=== PATIENT | male | born 1945 | race Hispanic/Latino ===

== ENCOUNTER 2019-02-13 12:14 | Emergency (ER) | payer OTHER ==
--- OUTSIDE RECORDS SUMMARY | 2019-02-13 12:17 | XMS REPORT ---
:1945 Author Organization eClinicalWorks Care Team Providers Name Role Phone Mace, Na Provider Role Unavailable Allergies, Adverse Reactions, Alerts Substance Reaction Event Type N.K.D.A. Info Not Available Non Drug Allergy Problems Problem Type Condition Code Onset Dates Condition Status Problem Hyperlipidemia E78.5 Active Problem Obesity, Class II, BMI 35.0-39.9, E66.9 Active with comorbidity (see actual BMI) Problem Controlled type 2 diabetes mellitus E11.9 Active without complication, without long-term current use of insulin Problem Personal history of nicotine Z87.891 Active dependence Assessment Personal history of nicotine Z87.891 Active dependence Problem Gastroesophageal reflux disease, K21.9 Active esophagitis presence not specified Problem Cough R05 Active Problem BMI 38.0-38.9,adult Z68.38 Active Problem Hearing loss, unspecified hearing H91.90 Active loss type, unspecified laterality Problem Stress at home F43.9 Active Problem Seasonal allergies J30.2 Active Assessment Benign paroxysmal positional H81.10 Active vertigo, unspecified laterality Assessment Gastroesophageal reflux disease, K21.9 Active esophagitis presence not specified Assessment Stress at home F43.9 Active Assessment Seasonal allergies J30.2 Active Problem HTN (hypertension) I10 Active Problem Hyperglycemia R73.9 Active Assessment Cough R05 Active Problem Obesity E66.9 Active Problem Tinea unguium B35.1 Active Medications Medication Code Code Instructions Start End Status Dosage System Date Date Omeprazole ND 51531569006 40 MG Orally Inactive 1 capsule Once a day Pantoprazole ND 47121643889 40 MG Orally Nov 25, Active 1 tablet Sodium Once a day 2018 Cetirizine HCl ND 53731439353 10 MG Orally Active 1 tablet Once a day Metoprolol ND 64488499742 50 MG Orally Active 1 tablet Tartrate Twice a day with food Flonase ND 41301149758 50 MCG/ACT Nov 25, Active 2 spray in Nasally Once a 2019 each day nostril Ibuprofen ND 45488217577 800 MG Orally Active 1 tablet Three times a with food day or milk as needed MetFORMIN HCl [facility] 52741372439 500 MG Orally Active 1 tablet ER twice a day Pravastatin [facility] 98239210668 40 MG Orally Active 1 tablet Sodium Once a day at bedtime Amlodipine [facility] 77914218364 5-10 MG Orally Active as Besy-Benazepril once a day at directed HCl bedtime for hypertension Terbinafine HCl [facility] 87457263728 250 MG Orally Active 1 tablet Once a day Results No Known Results Summary Purpose eClinicalWorks Submission
--- OUTSIDE RECORDS SUMMARY | 2019-02-13 12:17 | XMS REPORT ---
:1945 Author Organization eClinicalWorks Care Team Providers Name Role Phone Mace, Na Provider Role Unavailable Allergies No Known Allergies Problems Problem Type Condition Code Onset Dates Condition Status Problem Hyperlipidemia E78.5 Active Problem Obesity, Class II, BMI 35.0-39.9, E66.9 Active with comorbidity (see actual BMI) Problem Controlled type 2 diabetes mellitus E11.9 Active without complication, without long-term current use of insulin Problem Personal history of nicotine Z87.891 Active dependence Assessment Obesity, Class II, BMI 35.0-39.9, E66.9 Active with comorbidity (see actual BMI) Problem Gastroesophageal reflux disease, K21.9 Active esophagitis presence not specified Assessment Hearing loss, unspecified hearing H91.90 Active loss type, unspecified laterality Assessment Needs flu shot Z23 Active Problem Cough R05 Active Problem BMI 38.0-38.9,adult Z68.38 Active Problem Hearing loss, unspecified hearing H91.90 Active loss type, unspecified laterality Problem Stress at home F43.9 Active Problem Seasonal allergies J30.2 Active Assessment Hyperlipidemia E78.5 Active Assessment HTN (hypertension) I10 Active Assessment Seasonal allergies J30.2 Active Assessment Microalbuminuria R80.9 Active Problem HTN (hypertension) I10 Active Problem Hyperglycemia R73.9 Active Assessment Type 2 diabetes mellitus with E11.65 Active hyperglycemia, without long-term current use of insulin Problem Obesity E66.9 Active Problem Tinea unguium B35.1 Active Medications Medication Code Code Instructions Start End Status Dosage System Date Date Metoprolol ND 89063424643 50 MG Orally Active 1 tablet Tartrate Twice a day with food Flonase NDC 12956606856 50 MCG/ACT Jan 26, Active 2 spray in Nasally Once a 2018 each day nostril Flonase NDC 35701746073 50 MCG/ACT Nov 25, Active 2 spray in Nasally Once a 2018 each day nostril Montelukast NDC 94315015066 10 MG Orally Jan 26, Active 1 tablet Sodium Once a day 2018 Ibuprofen [facility] 12298079024 800 MG Orally Active 1 tablet Three times a with food day or milk as needed Amlodipine [facility] 17025399067 5-10 MG Orally Active as Besy-Benazepril once a day at directed HCl bedtime for hypertension Cetirizine HCl [facility] 99487342246 10 MG Orally Jan 26, Inactive 1 tablet Once a day 2018 Pantoprazole [facility] 92788160969 40 MG Orally Nov 25, Active 1 tablet Sodium Once a day 2018 Pravastatin [facility] 63495968031 40 MG Orally Active 1 tablet Sodium Once a day at bedtime MetFORMIN HCl [facility] 81413360465 500 MG Orally Active 1 tablet ER twice a day Terbinafine HCl [facility] 03857546658 250 MG Orally Active 1 tablet Once a day Results No Known Results Immunizations Vaccine Administration Date FluAD Jan 26, 2019 Summary Purpose eClinicalWorks Submission
--- NOTE | 2019-02-13 14:50 | ER ---
Nurse's Notes [facility] Name: Nikita Staton Age: 73 yrs Sex: Male : 1945 Arrival Date: 02/13/2019 Time: 12:17 Bed 11 Private MD: Lucille Mace Diagnosis: Strain of muscle, fascia and tendon at neck level;Strain of muscle(s) and tendon(s) of the rotator cuff of left shoulder;Bradycardia, unspecified Presentation: 02/13 12:22 Presenting complaint: Patient states: left ear pain for the last few days. Transition la1 of care: patient was not received from another setting of care. Onset of symptoms was February 13, 2019. Risk Assessment: Do you want to hurt yourself or someone else? Patient reports no desire to harm self or others. Initial Sepsis Screen: Does the patient meet any 2 criteria? No. Patient's initial sepsis screen is negative. Does the patient have a suspected source of infection? No. Patient's initial sepsis screen is negative. Care prior to arrival: None. 12:22 Method Of Arrival: Ambulatory la1 12:22 Acuity: AILIN 5 la1 Historical: - Allergies: 12:21 No Known Allergies; la1 - PMHx: 12:21 Hypertension; la1 - Immunization history:: Adult Immunizations up to date. - Social history:: Smoking status: Patient/guardian denies using tobacco. - Ebola Screening: : No symptoms or risks identified at this time. - Family history:: not pertinent. Screenin:45 Abuse screen: Denies threats or abuse. Denies injuries from another. Nutritional rv screening: No deficits noted. Tuberculosis screening: No symptoms or risk factors identified. Fall Risk None identified. Assessment: 13:44 General: Appears in no apparent distress. comfortable, Behavior is calm, cooperative. rv Pain: Complains of pain in left ear. Neuro: Level of Consciousness is awake, alert, obeys commands, Oriented to person, place, time, situation. Cardiovascular: Patient's skin is warm and dry. Respiratory: Airway is patent. GI: No signs and/or symptoms were reported involving the gastrointestinal system. : No signs and/or symptoms were reported regarding the genitourinary system. EENT: noticed good amount of earwax in the left ear.. Derm: Skin is intact. Musculoskeletal: No signs and/or symptoms reported regarding the musculoskeletal system. Vital Signs: 12:22 Pulse 50; Resp 16; Temp 98.1; Pulse Ox 100% on R/A; Weight 90.72 kg; la1 12:23 BP 125 / 54; la1 ED Course: 12:17 Patient arrived in ED. ag5 12:17 Lucille Mace MD is Private Physician. ag5 12:22 Triage completed. la1 12:22 Arm band placed on right wrist. la1 13:40 Cullen Sharp, RN is Primary Nurse. rv 13:46 Patient has correct armband on for positive identification. Bed in low position. Call rv light in reach. Side rails up X 1. Pulse ox on. NIBP on. 13:51 Kris Henao MD is Attending Physician. quynh 14:48 Lucille Mace MD is Referral Physician. quynh 15:00 David El MD is Referral Physician. [facility] 15:06 EKG done, by light technician. reviewed by Kris Henao MD. [facility] 15:06 No provider procedures requiring assistance completed. Patient did not have IV access rv during this emergency room visit. Administered Medications: 15:05 Drug: [place] (7.5 mg-325 mg) 1 tabs Route: PO; rv 15:06 Follow up: Response: Medication administered at discharge. rv 15:05 Drug: Valium 5 mg Route: PO; rv 15:06 Follow up: Response: Medication administered at discharge. rv 15:06 Drug: Motrin 600 mg Route: PO; rv 15:06 Follow up: Response: Medication administered at discharge. rv Outcome: 14:49 Discharge ordered by . quynh 15:06 Discharged to home ambulatory, with family. rv 15:06 Condition: good 15:06 Discharge instructions given to patient, Instructed on discharge instructions, follow up and referral plans. medication usage, Demonstrated understanding of instructions, follow-up care, medications, Prescriptions given X 4. 15:07 Patient left the ED. rv Signatures: Kris Henao MD MD cha Attema, Lee, RN RN ks1 Kylee Denney 3 Cullen Sharp RN RN Marilu Piper 5
--- NOTE | 2019-02-13 14:50 | EDPHYS ---
Physician Documentation [facility] Name: Nikita Staton Age: 73 yrs Sex: Male : 1945 Arrival Date: 02/13/2019 Time: 12:17 Bed 11 Private MD: Lucille Mace ED Physician Kris Henao HPI: 02/13 14:43 This 73 yrs old Male presents to ER via Ambulatory with complaints of Ear Pain.quynh 14:43 The patient presents with pain. quynh 14:44 The complaints affect the left ear and left jaw. Onset: The symptoms/episode quynh began/occurred 2 day(s) ago. Modifying factors: The symptoms are alleviated by nothing, the symptoms are aggravated by nothing. The patient presents with pain that is acute, and decreased range of motion. The symptoms are located in the posterior cervical area, left trapezius, left scapular area and left subscapular area. Modifying factors: The patient symptoms are alleviated by remaining still, specific position, the patient symptoms are aggravated by any movement, lifting, movement. Historical: - Allergies: 12:21 No Known Allergies; la1 - PMHx: 12:21 Hypertension; la1 - Immunization history:: Adult Immunizations up to date. - Social history:: Smoking status: Patient/guardian denies using tobacco. - Ebola Screening: : No symptoms or risks identified at this time. - Family history:: not pertinent. ROS: 14:44 Constitutional: Negative for fever, chills, and weight loss, Eyes: Negative for injury, quynh pain, redness, and discharge, ENT: Negative for injury, pain, and discharge, Neck: Negative for injury, pain, and swelling, Cardiovascular: Negative for chest pain, palpitations, and edema, Respiratory: Negative for shortness of breath, cough, wheezing, and pleuritic chest pain, Abdomen/GI: Negative for abdominal pain, nausea, vomiting, diarrhea, and constipation, : Negative for injury, bleeding, discharge, and swelling, Skin: Negative for injury, rash, and discoloration, Neuro: Negative for headache, weakness, numbness, tingling, and seizure, Psych: Negative for depression, anxiety, suicide ideation, homicidal ideation, and hallucinations, Allergy/Immunology: Negative for hives, rash, and allergies, Endocrine: Negative for neck swelling, polydipsia, polyuria, polyphagia, and marked weight changes, Hematologic/Lymphatic: Negative for swollen nodes, abnormal bleeding, and unusual bruising. 14:44 Back: Positive for decreased range of motion, pain at rest, pain with movement. 14:44 MS/extremity: Positive for decreased range of motion, pain, tenderness, of the posterior cervical area, left trapezius, left scapular area and left subscapular area. Exam: 14:44 Constitutional: This is a well developed, well nourished patient who is awake, alert, quynh and in no acute distress. Head/Face: Normocephalic, atraumatic. Eyes: Pupils equal round and reactive to light, extra-ocular motions intact. Lids and lashes normal. Conjunctiva and sclera are non-icteric and not injected. Cornea within normal limits. Periorbital areas with no swelling, redness, or edema. ENT: Nares patent. No nasal discharge, no septal abnormalities noted. Tympanic membranes are normal and external auditory canals are clear. Oropharynx with no redness, swelling, or masses, exudates, or evidence of obstruction, uvula midline. Mucous membranes moist. Neck: Trachea midline, no thyromegaly or masses palpated, and no cervical lymphadenopathy. Supple, full range of motion without nuchal rigidity, or vertebral point tenderness. No Meningismus. Chest/axilla: Normal chest wall appearance and motion. Nontender with no deformity. No lesions are appreciated. Cardiovascular: Regular rate and rhythm with a normal S1 and S2. No gallops, murmurs, or rubs. Normal PMI, no JVD. No pulse deficits. Respiratory: Lungs have equal breath sounds bilaterally, clear to auscultation and percussion. No rales, rhonchi or wheezes noted. No increased work of breathing, no retractions or nasal flaring. Abdomen/GI: Soft, non-tender, with normal bowel sounds. No distension or tympany. No guarding or rebound. No evidence of tenderness throughout. Back: No spinal tenderness. No costovertebral tenderness. Full range of motion. Skin: Warm, dry with normal turgor. Normal color with no rashes, no lesions, and no evidence of cellulitis. Neuro: Awake and alert, GCS 15, oriented to person, place, time, and situation. Cranial nerves II-XII grossly intact. Motor strength 5/5 in all extremities. Sensory grossly intact. Cerebellar exam normal. Normal gait. Psych: Awake, alert, with orientation to person, place and time. Behavior, mood, and affect are within normal limits. 14:44 Musculoskeletal/extremity: Extremities: grossly normal except: decreased ROM, pain, tenderness. Vital Signs: 12:22 Pulse 50; Resp 16; Temp 98.1; Pulse Ox 100% on R/A; Weight 90.72 kg; la1 12:23 BP 125 / 54; la1 MDM: 13:51 Patient medically screened. [facility] 02/13 14:43 Order name: EKG; Complete Time: 14:44 [facility] 02/13 14:43 Order name: EKG - Nurse/Tech; Complete Time: 14:55 [facility] Administered Medications: 15:05 Drug: [place] (7.5 mg-325 mg) 1 tabs Route: PO; rv 15:06 Follow up: Response: Medication administered at discharge. rv 15:05 Drug: Valium 5 mg Route: PO; rv 15:06 Follow up: Response: Medication administered at discharge. rv 15:06 Drug: Motrin 600 mg Route: PO; rv 15:06 Follow up: Response: Medication administered at discharge. rv Disposition: 02/13/19 14:49 Discharged to Home. Impression: Strain of muscle, fascia and tendon at neck level, Strain of muscle(s) and tendon(s) of the rotator cuff of left shoulder, Bradycardia, unspecified. - Condition is Stable. - Discharge Instructions: Bradycardia, Adult, Muscle Strain, Cervical Sprain, [id number]. - Prescriptions for Ibuprofen 600 mg Oral Tablet - take 1 tablet by ORAL route every 8 hours As needed take with food; 21 tablet. Tylenol- Codeine #3 300-30 mg Oral Tablet - take 2 tablet by ORAL route every 6 hours As needed; 30 tablet. Valium 5 mg Oral Tablet - take 1 tablet by ORAL route every 8 hours As needed; 15 tablet. Medrol (Phil) 4 mg Oral Tablets, Dose Pack - take 1 tablet by ORAL route as directed - follow package instructions; 1 packet. - Medication Reconciliation Form, Thank You Letter, Antibiotic Education, Prescription Opioid Use form. - Follow up: Lucille Mace MD; When: 2 - 3 days; Reason: Recheck today's complaints, Continuance of care, Re-evaluation by your physician. Follow up: David El MD; When: 2 - 3 days; Reason: Recheck today's complaints, Re-evaluation by your physician. - Problem is new. - Symptoms have improved. Signatures: Kris Henao MD MD cha Attema, Lee, RN RN la1 Cullen Sharp RN RN rv Corrections: (The following items were deleted from the chart) 15:00 14:49 02/13/2019 14:49 Discharged to Home. Impression: Strain of muscle, fascia and quynh tendon at neck level; Strain of muscle(s) and tendon(s) of the rotator cuff of left shoulder. Condition is Stable. Forms are Medication Reconciliation Form, Thank You Letter, Antibiotic Education, Prescription Opioid Use. Follow up: Lucille Mace; When: 2 - 3 days; Reason: Recheck today's complaints, Continuance of care, Re-evaluation by your physician. Problem is new. Symptoms have improved. [facility] 15:07 15:00 02/13/2019 14:49 Discharged to Home. Impression: Strain of muscle, fascia and rv tendon at neck level; Strain of muscle(s) and tendon(s) of the rotator cuff of left shoulder; Bradycardia, unspecified. Condition is Stable. Discharge Instructions: Muscle Strain, Cervical Sprain, [id number]. Prescriptions for Ibuprofen 600 mg Oral Tablet - take 1 tablet by ORAL route every 8 hours As needed take with food; 21 tablet, Tylenol-Codeine #3 300-30 mg Oral Tablet - take 2 tablet by ORAL route every 6 hours As needed; 30 tablet, Valium 5 mg Oral Tablet - take 1 tablet by ORAL route every 8 hours As needed; 15 tablet, Medrol (Phil) 4 mg Oral Tablets, Dose Pack - take 1 tablet by ORAL route as directed - follow package instructions; 1 packet. and Forms are Medication Reconciliation Form, Thank You Letter, Antibiotic Education, Prescription Opioid Use. Follow up: Lucille Mace; When: 2 - 3 days; Reason: Recheck today's complaints, Continuance of care, Re-evaluation by your physician. Follow up: David El; When: 2 - 3 days; Reason: Recheck today's complaints, Re-evaluation by your physician. Problem is new. Symptoms have improved. quynh
[2019-02-13] MEDS ORDERED: DIAZEPAM 5 MG TABLET ONE (14:53)
[2019-02-13] MEDS ORDERED: IBUPROFEN 200 MG TAB PO ONE (14:54)
[2019-02-13] MEDS ORDERED: IBUPROFEN 400 MG TAB ONE (14:54)
[2019-02-13] MEDS ORDERED: HYDROCODONE/APAP 7.5/325 MG TAB ONE (14:54)
--- NOTE | 2019-02-13 16:29 | EKG ---
Test Date: 2019-02-13 Test Time: 14:55:31 Medical Detailist: GLEN MEASUREMENT RESULTS: Intervals: Rate: 37 OR: 178 QRSD: 92 QT: 490 QTc: 384 [place]: P: 15 OR: 178 QRS: 54 T: 48 INTERPRETIVE STATEMENTS: Sinus rhythm with Mobitz II AV block Abnormal ECG Compared to ECG 05/15/2014 01:16:39 Sinus rhythm is now with second degree AV block Electronically Signed On 02-13-19 16:29:17 [employer]PER[employer]ENDENT [employer]EV[employer] by Jimbo Garcia
[2019-02-13 17:48] VITALS: TEMP 98.1; O2SAT 100
[2019-02-13 17:49] VITALS: BP 125/54
== END 2019-02-13 15:07 | disposition home or self-care (01) ==
LOC: ER 12:14
DX: S16.1XXA Strain of muscle, fascia and tendon at neck level, initial encounter (principal); S46.012A Strain of muscle(s) and tendon(s) of the rotator cuff of left shoulder, initial encounter; R00.1 Bradycardia, unspecified; I10 Essential (primary) hypertension
CPT/HCPCS: 93005; 99284

== ENCOUNTER 2021-10-06 11:14 | Inpatient (IN) | payer OTHER ==
--- NOTE | 2021-10-06 11:25 | ER ---
Nurse's Notes [facility] Name: Nikita Staton Age: 76 yrs Sex: Male : 1945 Arrival Date: 10/06/2021 Time: 11:16 Bed 26 Private MD: Alfred Leung Diagnosis: Bradycardia, unspecified;Chest pain, unspecified Presentation: 10/06 11:22 Chief complaint: Patient states: Direct admit from Dr Leung due to Bradycardia. Pt vg1 reports "chest tightness and SOB". Coronavirus screen: Vaccine status: Patient reports receiving the 2nd dose of the covid vaccine. Client denies travel out of the [place] in the last 14 days. Ebola Screen: Patient denies exposure to infectious person. Patient denies travel to an Ebola-affected area in the 21 days before illness onset. Initial Sepsis Screen: Does the patient meet any 2 criteria? No. Patient's initial sepsis screen is negative. Does the patient have a suspected source of infection? No. Patient's initial sepsis screen is negative. Risk Assessment: Do you want to hurt yourself or someone else? Patient reports no desire to harm self or others. Onset of symptoms was October 06, 2021. 11:22 Method Of Arrival: Ambulatory vg1 11:22 Acuity: AILIN 3 vg1 Triage Assessment: 11:25 General: Appears uncomfortable, Behavior is calm, cooperative. Pain: Complains of pain vg1 in chest Pain currently is 2 out of 10 on a pain scale. Quality of pain is described as pressure, Pain began 2-3 days ago. Neuro: Level of Consciousness is awake, alert, obeys commands, Oriented to person, place, time, situation. Cardiovascular: Patient's skin is warm and dry. Respiratory: Airway is patent Respiratory effort is even, unlabored. Historical: - Allergies: 11:25 No Known Allergies; vg1 - Home Meds: 11:25 Metoprolol Tartrate Oral [Active]; metformin Oral [Active]; vg1 - PMHx: 11:25 Hypertension; Diabetes mellitus; vg1 - Immunization history:: Client reports receiving the 2nd dose of the Covid vaccine. - Social history:: Smoking status: Patient denies any tobacco usage or history of. Vital Signs: 11: BP 163 / 72; Pulse 38; Resp 18; Temp 98.6; Pulse Ox 98% on R/A; Weight 90.72 kg; Height vg1 5 ft. 5 in. (165.10 cm); Pain 2/10; 11:22 Body Mass Index 33.28 (90.72 kg, 165.10 cm) vg1 ED Course: 11:16 Patient arrived in ED. mr 11:17 Alfred Leung MD is Private Physician. mr 11:18 Tyrel Borrego DO is Attending Physician. ms3 11:24 Alfred Leung MD is Hospitalizing Provider. ms3 11:25 Triage completed. vg1 11:25 Arm band placed on. vg1 11:35 XRAY Chest (1 view) In Process Unspecified. EDMS 12:26 Kne Morin, RN is Primary Nurse. bp 12:47 COVID-19 SARS RT PCR (Document "Date of Onset" if Symptomatic) Sent. kc6 13:20 Inserted saline lock: 20 gauge in right forearm, using aseptic technique. Blood bp collected. Administered Medications: No medications were administered Outcome: 11:25 Decision to Hospitalize by Provider. ms3 16:49 Patient left the ED. Signatures: Dispatcher [employer] EDND Marcia Polo mr Keara Rogers, RN RN Ken Morin, RN RN Jeannette Bro, RAJ RN vg1 Tyrel Borrego DO DO ms3 Rossy Mazariegos kc6
--- NOTE | 2021-10-06 11:26 | EDPHYS ---
Physician Documentation [facility] Name: Nikita Staton Age: 76 yrs Sex: Male : 1945 Arrival Date: 10/06/2021 Time: 11:16 Bed 26 Private MD: Alfred Leung ED Physician Tyrel Borrego HPI: 10/06 17:17 This 76 yrs old Male presents to ER via Ambulatory with complaints of ms3 Bradycardia per Dr Leung/Direct Admit. 17:17 76-year-old male presents from Dr. Leung's office for admission due to low heart rate. ms3 Dr. Leung states patient is on metoprolol. Patient denies pain. Patient Dors is shortness of breath that began 5 days ago associated with mild chest pressure. Patient denies alleviating or inciting factors.. Onset: The symptoms/episode began/occurred 5 day(s) ago. Severity of symptoms: At their worst the symptoms were mild in the emergency department the symptoms are unchanged. Historical: - Allergies: 11:25 No Known Allergies; vg1 - Home Meds: 11:25 Metoprolol Tartrate Oral [Active]; metformin Oral [Active]; vg1 - PMHx: 11:25 Hypertension; Diabetes mellitus; vg1 - Immunization history:: Client reports receiving the 2nd dose of the Covid vaccine. - Social history:: Smoking status: Patient denies any tobacco usage or history of. ROS: 17:17 Constitutional: Negative for fever, and chills. Neck: Negative for injury, pain, and ms3 swelling. 17:17 Skin: Negative for injury, rash, and discoloration, Neuro: Negative for headache, weakness, numbness, tingling. Psych: Negative for depression, anxiety, suicide ideation, homicidal ideation, and hallucinations. 17:17 Cardiovascular: Positive for chest pain. 17:17 Respiratory: Positive for shortness of breath. 17:17 All other systems are negative. Exam: 12:45 ECG was reviewed by the Attending Physician. ms3 17:17 Constitutional: This is a well developed, well nourished patient who is awake, alert, ms3 and in no acute distress. Eyes: Pupils equal round and reactive to light, extra-ocular motions intact. Lids and lashes normal. Conjunctiva and sclera are non-icteric and not injected. Periorbital areas with no swelling, redness, or edema. ENT: Nares patent. No nasal discharge, no septal abnormalities noted. Tympanic membranes are normal and external auditory canals are clear. Oropharynx with no redness, swelling, or masses, exudates, or evidence of obstruction, uvula midline. Mucous membranes moist. Neck: Trachea midline, no cervical lymphadenopathy. Supple, full range of motion without nuchal rigidity, or vertebral point tenderness. No Meningismus. Chest/axilla: Normal chest wall appearance and motion. Nontender with no deformity. 17:17 Skin: Warm, dry with normal turgor. Normal color with no rashes, no lesions, and no evidence of cellulitis. MS/ Extremity: Pulses equal, no cyanosis. Neurovascular intact. Full, normal range of motion. Psych: Awake, alert, with orientation to person, place and time. Behavior, mood, and affect are within normal limits. 17:17 Cardiovascular: Rate: bradycardic, Rhythm: regular, Pulses: no pulse deficits are appreciated, Heart sounds: normal. Vital Signs: 11:22 BP 163 / 72; Pulse 38; Resp 18; Temp 98.6; Pulse Ox 98% on R/A; Weight 90.72 kg; Height vg1 5 ft. 5 in. (165.10 cm); Pain 2/10; 11:22 Body Mass Index 33.28 (90.72 kg, 165.10 cm) vg1 MDM: 11:18 Patient medically screened. ms3 17:17 Differential Diagnosis IN vs Sinus bradycardia vs medication adverse reaction. Data ms3 reviewed: vital signs, nurses notes, lab test result(s), EKG, radiologic studies. Data interpreted:. Counseling: I had a detailed discussion with the patient and/or guardian regarding: the historical points, exam findings, and any diagnostic results supporting the discharge/admit diagnosis, lab results, radiology results, the need for further work-up and treatment in the hospital. ED course: Case discussed with Dr Leung. Patient does not need labs, x-ray drawn. Labs were cancelled. Discussed plan for admission with patient and his . patient remained asymptomatic in the ED.. 10/06 11:24 Order name: COVID-19 SARS RT PCR (Document "Date of Onset" if Symptomatic); Complete ss Time: 17:22 07/18 12:41 Order name: CBC with Automated Diff EDMS 10/06 12:41 Order name: CBC with Automated Diff EDMS 10/06 12:41 Order name: CBC with Automated Diff EDMS 10/06 12:41 Order name: CBC with Automated Diff EDMS 10/06 12:41 Order name: Comprehensive Metabolic Panel EDMS 10/06 12:41 Order name: Comprehensive Metabolic Panel EDMS 10/06 12:41 Order name: Comprehensive Metabolic Panel EDMS 10/06 12:41 Order name: Comprehensive Metabolic Panel EDMS 10/06 12:43 Order name: Thyroid Stimulating Hormone EDMS 10/06 12:56 Order name: Troponin HS eb 10/06 11:23 Order name: XRAY Chest (1 view); Complete Time: 12:57 ms3 10/06 11:23 Order name: EKG; Complete Time: 11:24 ms3 10/06 11:23 Order name: Cardiac monitoring; Complete Time: 13:33 ms3 10/06 11:23 Order name: EKG - Nurse/Tech; Complete Time: 12:45 ms3 10/06 11:23 Order name: IV Saline Lock; Complete Time: 13:33 ms3 10/06 11:23 Order name: Labs collected and sent; Complete Time: 13:33 ms3 10/06 11:23 Order name: O2 Per Protocol; Complete Time: 13:33 ms3 10/06 11:23 Order name: O2 Sat Monitoring; Complete Time: 13:33 ms3 10/06 12:41 Order name: CONS Physician Consult EDMS 10/06 13:48 Order name: Troponin High Sensitivity; Complete Time: 17:22 EDMS EC:45 Rate is 37 beats/min. Rhythm is regular. QRS [place] is Normal. QRS interval is normal. ms3 Clinical impression: 3rd degree heart block. Interpreted by me. Reviewed by me. Administered Medications: No medications were administered Disposition Summary: 10/06/21 11:25 Hospitalization Ordered Hospitalization Status: Inpatient Admission ms3 Provider: Alfred Leung ms3 Condition: Stable ms3 Problem: new ms3 Symptoms: are unchanged ms3 Bed/Room Type: Standard ms3 Location: Telemetry/MedSurg (Inpatient)(10/06/21 15:53) dw Room Assignment: 211(10/06/21 15:53) dw Diagnosis - Bradycardia, unspecified ms3 - Chest pain, unspecified ms3 Forms: - Medication Reconciliation Form ms3 - SBAR form ms3 Signatures: Dispatcher [employer] EDDora Rosado RN RN dw Keara Rogers RN RN ss Jeannette Martinez RN RN vg1 Tyrel Borrego, DO ms3 Corrections: (The following items were deleted from the chart) 12:16 11:24 BASIC METABOLIC PANEL+C.LAB.BRZ ordered. EDMS EDMS 12:16 11:24 CBC+H.LAB.BRZ ordered. EDMS EDMS 12:16 11:24 Troponin High Sensitivity+C.LAB.BRZ ordered. EDMS EDMS 14:21 11:25 Telemetry/MedSurg (Inpatient) ms3 ss 14:21 11:25 ms3 ss 15:53 14:21 [facility] ER HOLD ss dw 15:53 14:21 ERHOLD- ss dw
--- NOTE | 2021-10-06 12:18 | RAD REPORT ---
EXAM DESCRIPTION: RAD - Chest Single View - 10/06/2021 11:34 am CLINICAL HISTORY: CHEST PAIN COMPARISON: Two view chest 11/30/2018 TECHNIQUE: AP portable chest image was obtained 10/06/2021 11:34 am . FINDINGS: No mass or consolidations seen. Acute failure is not suspected. Hilar regions are similar to comparison. Interstitial pattern is slightly more pronounced which can be accounted for by portabl e under penetrated examination. Chronic interstitial pattern could mask minimal edema or infiltrate. Heart and vasculature are normal. No measurable pleural effusion and no pneumothorax. No acute bony a bnormality seen. No acute aortic findings suspected. IMPRESSION: No acute cardiopulmonary process suspected. The mildly prominent baseline interstitial pattern, accentuated on under penetrated portable exam, co uld mask minimal edema or infiltrate.
--- NOTE | 2021-10-06 12:49 | P.HP ---
Certification for Inpatient Patient admitted to: Inpatient With expected LOS: >2 Midnights Patient will require the following post-hospital care: None Practitioner: I am a practitioner with admitting privileges, knowledge of patient current condition, hospital course, and medical plan of care. Services: Services provided to patient in accordance with Admission requirements found in Title 42 Section 412.3 of the Code of Federal Regulations Patient History Date of Service: 10/06/21 Primary Care Provider: Mary Amezcua Reason for admission: Symptomatic Bradycardia History of Present Illness: Patient is an office patient of ours. He was having some dizziness and sob He was in the office last Wednesday. He has bradycardia of 57. Went and had a covid test. Which was negative. However the patient was having increased sob and dizziness. The patient came back to the office. The patient repeat ekg was 36. We sent him for admission Allergies No Known Allergies Allergy (Verified 05/15/14 05:18) Home Medications: Amlodipine Besylate/Benazepril [Lotrel 5-10 mg Capsule] 1 tab PO DAILY 05/15/14 Quetiapine Fumarate [Seroquel] 50 mg PO BEDTIME 05/15/14 Hydrocodone 7.5/APAP 325 [[place] 7.5/325 mg] 1 tab PO Q4HP PRN #20 tab 05/18/14 Levofloxacin [Levaquin] 500 mg PO DAILY #7 tablet 05/18/14 metroNIDAZOLE [Flagyl*] 500 mg PO Q8H #21 tablet 05/18/14 - Past Medical/Surgical History Diabetic: No -: HTN -: Appendectomy - Social History Alcohol use: Yes CD- Drugs: No Caffeine use: Yes Review of Systems 10-point ROS is otherwise unremarkable General: Weakness Respiratory: Shortness of Breath Cardiovascular: Light Headedness Physical Examination - Physical Exam General: Alert, In no apparent distress HEENT: Atraumatic, PERRLA, Mucous membr. moist/pink, EOMI, Sclerae nonicteric Neck: Supple, 2+ carotid pulse no bruit, No LAD, Without JVD or thyroid abnormality Respiratory: Clear to auscultation bilaterally, Normal air movement Cardiovascular: Regular rate/rhythm, Normal S1 S2 Gastrointestinal: Normal bowel sounds, No tenderness Musculoskeletal: No tenderness Integumentary: No rashes Neurological: Normal gait, Normal speech, Normal strength at 5/5 x4 extr, Normal tone, Normal affect Lymphatics: No axilla or inguinal lymphadenopathy - Studies Laboratory Data (last 24 hrs) 10/06/21 11:23: WBC Cancelled, Hgb Cancelled, Hct Cancelled, Plt Count Cancelled 10/06/21 11:23: Sodium Cancelled, Potassium Cancelled, BUN Cancelled, Creatinine Cancelled, Glucose Cancelled Assessment and Plan - Problems (Diagnosis) (1) Bradycardia on ECG Current Visit: Yes Status: Acute Plan: Patent was on metoprolol. Will admit. Give him gentle fluids. Will get a echocardiogram and consult to Dr. El. (2) HTN (hypertension) Current Visit: Yes Status: Acute Plan: will hold his medications for now. Restart in the morning. Qualifiers: Hypertension type: primary hypertension Qualified Code(s): I10 - Essential (primary) hypertension Discharge Plan: Home Plan to discharge in: 48 Hours - Advance Directives Does patient have a Living Will: No Does patient have a Durable POA for Healthcare: No - Code Status/Comfort Care Code Status Assessed: No Code Status: Full Code Physician Review: Patient Assessed, Agree with Above Assessment and Plan Critical Care: No Time Spent Managing Pts Care (In Minutes): 70
[2021-10-06] MEDS: NA CHLORIDE 0.9% 1,000 ML IV SCH (14:52)
[2021-10-06] MEDS ORDERED: NA CHLORIDE 0.9% 1,000 ML ONE (14:58)
[2021-10-06 15:38] VITALS: BMI 29.6
[2021-10-06] MEDS ORDERED: PNEUMOCOCCAL VACCINE 0.5 ML IMVAC ONE (16:00)
[2021-10-06] MEDS ORDERED: ENOXAPARIN 40 MG/0.4 ML SQ SCH (17:00)
[2021-10-06] MEDS: METFORMIN HCL 500 MG TAB PO SCH (17:08)
[2021-10-06] MEDS ORDERED: QUETIAPINE 25 MG TAB PO SCH ×2 (21:00)
[2021-10-07] MEDS: NA CHLORIDE 0.9% 1,000 ML IV SCH ×2 (02:20→06:07)
[2021-10-07 02:27] VITALS: O2SAT 97
[2021-10-07 06:40] LABS: Absolute Lymphocytes (CBC) 1.8 K/uL (0.7-4.9); Hematocrit 39.8 % (39.6-49.0); Lymphocytes % 23.2 % (15.3-44.8); MCV 93.9 fL (80-100); RBC Red Blood Cell Count 4.24 M/uL (4.33-5.43)
[2021-10-07 06:56] LABS: Albumin 3.3 g/dL (3.4-5.0); Bilirubin Total 1.6 mg/dL (0.2-1.0); Potassium 3.9 mmol/L (3.5-5.1); Protein, Total 6.4 g/dL (6.4-8.2); Thyroid Stimulating Hormone 1.1 uIU/mL (0.360-3.740)
[2021-10-07] MEDS ORDERED: PANTOPRAZOLE 40MG TABLET PO SCH (07:30)
[2021-10-07 08:03] VITALS: BP 134/65; TEMP 97.2
[2021-10-07] MEDS ORDERED: GLUCAGON 1 MG/VIAL IM PRN (08:15)
[2021-10-07] MEDS ORDERED: D50W 25 GM/50 ML SYRINGE IV PRN (08:15)
--- NOTE | 2021-10-07 08:17 | EKG ---
Test Date: 2021-10-06 Test Time: 12:45:06 Fitness Manager: WILFRID MEASUREMENT RESULTS: Intervals: Rate: 37 DE: QRSD: 88 QT: 470 QTc: 368 [place]: P: 10 DE: QRS: 62 T: 59 INTERPRETIVE STATEMENTS: Sinus rhythm with AV dissociation and Junctional bradycardia with sinus/atrial capture Nonspecific T wave abnormality Abnormal ECG Compared to ECG 02/13/2019 14:55:31 AV dissociation now present T-wave abnormality now present Second-degree AV block, Mobitz type II no longer present Electronically Signed On 10-07-21 08:12:47 CDT by David El
[2021-10-07] MEDS ORDERED: D10W 125 ML IV PRN (08:18)
--- NOTE | 2021-10-07 08:18 | P.PN ---
Subjective Date of Service: 10/07/21 Primary Care Provider: Mary Amezcua Chief Complaint: Symptomatic Bradycardia Subjective: No new changes Review of Systems 10-point ROS is otherwise unremarkable General: Other (tired on walking) Physical Examination - Vital Signs Temperature: 97.2 F Blood Pressure: 134/65 Pulse: 36 Respirations: 18 Pulse Ox (%): 96 - Physical Exam General: Alert, In no apparent distress HEENT: Atraumatic, PERRLA, EOMI Neck: Supple, JVD not distended Respiratory: Clear to auscultation bilaterally, Normal air movement Cardiovascular: Normal S1 S2, Other (bradycardia) Gastrointestinal: Normal bowel sounds, No tenderness Musculoskeletal: No tenderness Integumentary: No rashes Neurological: Normal speech, Normal tone, Normal affect Lymphatics: No axilla or inguinal lymphadenopathy - Studies Laboratory Data (last 24 hrs) 10/06/21 11:23: WBC Cancelled, Hgb Cancelled, Hct Cancelled, Plt Count Cancelled 10/06/21 11:23: Sodium Cancelled, Potassium Cancelled, BUN Cancelled, Creatinine Cancelled, Glucose Cancelled Assessment And Plan - Current Problems (Diagnosis) (1) Bradycardia on ECG Current Visit: Yes Status: Acute Plan: Patent was on metoprolol. Will admit. Give him gentle fluids. Will get a echocardiogram and consult to Dr. El. 10/07 needs an echo His heart rate has not recovered. (2) HTN (hypertension) Current Visit: Yes Status: Acute Plan: will hold his medications for now. Restart in the morning. Qualifiers: Hypertension type: primary hypertension Qualified Code(s): I10 - Essential (primary) hypertension Discharge Plan: Home Plan to discharge in: 24 Hours - Code Status/Comfort Care Code Status Assessed: No Physician Review: Patient Assessed, Agree with Above Assessment and Plan Critical Care: No Time Spent Managing PTS Care (In Minutes): 20
[2021-10-07] MEDS: METFORMIN HCL 500 MG TAB PO SCH (08:26)
[2021-10-07] MEDS ORDERED: INSULIN -REGULAR HUMAN 50 UNIT/0.5 ML ML SQ SCH (11:30)
--- NOTE | 2021-10-07 14:15 | ECHO ---
HEIGHT: 5 ft 5 in WEIGHT: 178 lb 0 oz DATE OF STUDY: 10/07/[address]: Alfred Leung MD 2-DIMENSIONAL: YES M.MODE: YES DOPPLER: YES COLOR FLOW: YES TDS: NO PORTABLE: YES DEFINITY: NO BUBBLE STUDY: NO DIAGNOSIS: BRADYCARDIA CARDIAC HISTORY: CATHERIZATION: NO SURGERY: NO PROSTHETIC VALVE: NO PACEMAKER: NO MEASUREMENTS (cm) DIASTOLIC (NORMALS) SYSTOLIC (NORMALS) IVSd 1.2 (0.6-1.2) LA Diam 3.4 (1.9-4.0) LVEF 59% LVIDd 4.3 (3.5-5.7) LVIDs 3.0 (2.0-3.5) %FS 31% LVPWd 1.3 (0.6-1.2) Ao Diam 2.6 (2.0-3.7) 2 DIMENSIONAL ASSESSMENT: RIGHT ATRIUM: NORMAL LEFT ATRIUM: NORMAL RIGHT VENTRICLE: NORMAL LEFT VENTRICLE: NORMAL TRICUSPID VALVE: NORMAL MITRAL VALVE: PULMONIC VALVE: NORMAL AORTIC VALVE: NORMAL PERICARDIAL EFFUSION: NONE AORTIC ROOT: NORMAL LEFT VENTRICULAR WALL MOTION: NORMAL DOPPLER/COLOR FLOW: SEE BELOW COMMENTS: NORMAL LEFT VENTRICULAR EJECTION FRACTION 55-60%. NORMAL WALL MOTION. MILD MITRAL REGURGITATION. TECHNOLOGIST: Janessa SEYMOUR
--- NOTE | 2021-10-07 16:00 | P.DS ---
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 He was having some dizziness and sob He was in the office last Wednesday. He has bradycardia of 57. Went and had a covid test. Which was negative. However the patient was having increased sob and dizziness. The patient came back to the office. The patient repeat ekg was 36. We sent him for admission Hospital Course: Patient was admitted to the hospital. placed on telemetry. He had a normal echo. Was seen by Dr. El. No symptoms at this time. The plan is to discharge him home and have the patient follow up. If he is still bradycardic after a week off metoprolol will consider a pacemaker Vital Signs/Physical Exam: Temp Pulse Resp BP Pulse Ox 97.2 F 36 L 18 134/65 96 10/07/21 08:17 10/07/21 08:17 10/07/21 08:17 10/07/21 08:17 10/07/21 08:17 General: Alert, In no apparent distress HEENT: Atraumatic, PERRLA, EOMI Neck: Supple, JVD not distended Respiratory: Clear to auscultation bilaterally, Normal air movement Cardiovascular: Regular rate/rhythm, Normal S1 S2 Gastrointestinal: Normal bowel sounds, No tenderness Musculoskeletal: No tenderness Integumentary: No rashes Neurological: Normal speech, Normal tone, Normal affect Lymphatics: No axilla or inguinal lymphadenopathy Laboratory Data at Discharge: WBC 7.8 K/uL (4.3-10.9) 10/07/21 05:53 Hgb 13.4 g/dL (13.6-17.9) L 10/07/21 05:53 Hct 39.8 % (39.6-49.0) 10/07/21 05:53 Plt Count 231 K/uL (152-406) 10/07/21 05:53 Sodium 140 mmol/L (136-145) 10/07/21 05:53 Potassium 3.9 mmol/L (3.5-5.1) 10/07/21 05:53 BUN 12 mg/dL (7-18) 10/07/21 05:53 Creatinine 0.81 mg/dL (0.55-1.3) 10/07/21 05:53 Glucose 127 mg/dL (74-106) H 10/07/21 05:53 Total Bilirubin 1.6 mg/dL (0.2-1.0) H 10/07/21 05:53 AST 24 U/L (15-37) 10/07/21 05:53 ALT 62 U/L (12-78) 10/07/21 05:53 Alkaline Phosphatase 78 U/L (45-117) 10/07/21 05:53 Home Medications: Amlodipine Besylate/Valsartan [Amlodipine-Valsartan 5-160 mg] 1 tab PO DAILY 10/07/21 Metformin HCl 1,000 mg PO BID 10/07/21 Pravastatin Sodium 40 mg PO BEDTIME 10/07/21 Diet: ADA Activity: Ad jenise Followup: Maryam Amezcua FNP BC [ALLIED HEALTH PROFESSIONAL] - 1-2 Weeks David El MD [ACTIVE - CAN ADMIT] - 1 Week Physician Review: Patient Assessed, Agree with Above Assessment and Plan Time spent managing pt's care (in minutes): 40
--- NOTE | 2021-10-08 10:05 | CON ---
Date of Consultation: 10/07/[address] Leung on 10/06/2021. I saw the patient on 10/07/2021. Reason For Consultation: Severe bradycardia. History Of Present Illness: Mr. Staton is a 76-year-old [place] male with history of hypert ension, diabetes, and dyslipidemia. I was able to find an EKG on him from 2019 that showed sinus bra dycardia with a rate of 30's even then and that is the reason he has become more fatigued. EKG showe d what appeared to be a junctional bradycardia at 30's and was admitted. He was taking metoprolol an d this had been held. His rate remained low off metoprolol only for 1 day. He denied any syncope or chest pain. He denied any nausea, vomiting, diaphoresis, shortness of breath. His main complaint i s just fatigue. Past Medical History: Include diabetes, hypertension, and dyslipidemia. Allergies: NONE. Review of Systems: Negative. Social History: Negative. Family History: Negative. Medications: At home include amlodipine and valsartan combination, metformin, Pravachol. Metoprolol has been held. Physical Examination: Vital Signs: Stable except for his bradycardia, rate of 37. He is afebrile. HEENT: Exam is negative. Neck: Supple with no bruit. Chest: Clear. Cardiac: Exam revealed a regular rhythm with bradycardia, S4 gallop. Abdomen: Benign. Extremities: Revealed no clubbing, cyanosis, or edema. Diagnostic Data: Within normal limits. Impression And Plan: 1.Bradycardia. 2.Hypertension. 3.Diabetes. 4.Dyslipidemia. His bradycardia is chronic, has been going on for at least 3 years. I will continue to take him off the metoprolol. He is symptomatic with fatigue with his bradycardia. I am comfortable with him ama g home. Echocardiogram is pending. I will obtain a 7-day event monitor off metoprolol and if he rem ains bradycardic I will plan to put a pacemaker. The case was discussed with Dr. Leung. CATRACHITO/MODL Voice ID: [id number] Report ID: [id number]
--- OUTSIDE RECORDS SUMMARY | 2021-10-09 11:52 | XMS REPORT | Continuity of Care Document ---
:1945 Author Organization [facility] t Address [address] [place] [address] Care Team Providers Name Role Phone Lucille Mace Attending Clinician Unavailable Miller_S_AH Attending Clinician Unavailable Karen-Mbayo_A_AH Attending Clinician Unavailable Miller_S_AH Admitting Clinician Unavailable Karen-Mbayo_A_AH Admitting Clinician Unavailable Payers Payer Name Policy Type Policy Number Effective Date Expiration Date S our [facility] [place] - [id number] 2019 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 00:00: Practic 00 e Essential Essential Problem Active Emily kenton hypertensi Hypertensi 10-19 Fa oscar on on 00:00: Practic 00 e Allergies, Adverse Reactions, Alerts This patient has no known allergies or adverse reactions. Social History Smoking Status Start Date Stop Date Source Former Smoker [facility] Medications Ordered Filled Start Stop Current Ordering Indication Dosage Frequency Signature Comments Components Source Medication Medication Date Date Medication? Clinician (SIG) Name Name Metformin Metformin Yes Na Mace 1 tablet Common HCl HCl 11-30 with a Spirit 00:00: meal - [facility] Amlodipine Amlodipine Yes Na Mace 1 tablet Common Besylate-Va Besylate-Va 04-17 S pirit lsartan lsartan 00:00: - [facility] Montelukast Montelukast 2018-03 Yes Na Mace 1 tablet Common Sodium Sodium 03-28 Spirit 00:00: [facility] Pantoprazol Pantoprazol Yes Na Mace 1 tablet Common e Sodium e Sodium 11-25 Spirit 00:00: [facility] Flonase Flonase Yes Na Mace 2 spray in Common 11-25 each Spirit 00:00: nostril [facility] Pravastatin Pravastatin Yes Na Mace 1 tablet Common Sodium Sodium 07-11 Spirit 00:00: [facility] baclofen 10 baclofen 10 No baclofen [place] mg tablet mg tablet 10 mg Fami ly tablet Practic e fluticasone fluticasone No fluticason [facility] propionate propionate e Fam burt 50 50 propionate Practic mcg/actuati mcg/actuati 50 e on nasal on nasal mcg/actuat spray,suspe spray,suspe ion nasal nsion nsion spray,susp ension metformin metformin No metformin [facility] 1,000 mg 1,000 mg 1,000 mg Fam burt tablet tablet tablet Practic e metoprolol metoprolol No metoprolol [facility] tartrate 50 tartrate 50 tartrate Family mg tablet mg tablet 50 mg Prac tic tablet e montelukast montelukast No montelukas [facility] 10 mg 10 mg t 10 mg Family tablet tablet tablet Practic e olopatadine olopatadine No olopatadin [facility] 0.1 % eye 0.1 % eye e 0.1 % Fa oscar drops drops eye drops Practic e pantoprazol pantoprazol No pantoprazo [place] e 40 mg e 40 mg le 40 mg Famil y tablet,emelia tablet,emelia tablet,del Practic yed release yed release ayed e release pravastatin pravastatin No pravastati [facility] 40 mg 40 mg n 40 mg Family tablet Take tablet Take tablet Practic 1 tablet 1 tablet Take 1 e every day every day tablet by oral by oral every day route. route. by oral route. amlodipine amlodipine No amlodipine [facility] 5 5 5 Family mg-valsarta mg-valsarta mg-valsart Practic n 160 mg n 160 mg an 160 mg e tablet tablet tablet MetFORMIN MetFORMIN Yes Na Mace 1 tablet Common HCl ER HCl ER [facility] Metoprolol Metoprolol Yes Na Mace 1 tablet Common Tartrate Tartrate with food [facility] Ibuprofen Ibuprofen Yes Na Mace 1 tablet Common with food Spirit or milk as - [facility] needed [facility] Immunizations Ordered Immunization Filled Immunization Date Status Commen ts Source Name Name FluAD FluAD 2019-01-26 Completed [facility] - 00:00:00 [facility] influenza, influenza, 2018-12-20 [facility] injectable, injectable, 00:00:00 Practice quadrivalent quadrivalent Vital Signs Vital Name Observation Time Observation Value Comments Source Height 2020-07-25 00:00:00 65 [in_i] [facility] Height 2019-10-20 00:00:00 65 [in_i] [facility] BMI (Body Mass 2019-10-20 00:00:00 36.3 kg/m2 [facility] Index) [facility] Body Weight 2019-10-20 00:00:00 218 [lb_av] [facility] Procedures This patient has no known procedures. Encounters Start End Encounter Admission Attending Care Care Encounter Source Date/Time Date/Time Type Type Clinicians Facility Department ID 2021-04-16 Outpatient Lucille Mace [facility] [id number] 2 Common 12:45:46 [id number] [facility] 2021-04-16 [facility] [id number] 2 Common 12:28:46 [id number] [facility] 2021-04-16 Outpatient Lucille Mace [facility] [id number] 2 Common 12:27:34 [id number] [facility] 2021-04-16 Outpatient Mace, Na STLMLC STLML[facility] [id number] 2 Common 12:26:17 [id number] [facility] 2021-04-16 Outpatient Mace, Na STLMLC STLMLC [id number] 2 Common 12:24:59 [id number] [facility] 2021-04-16 Outpatient Mace, Na STLMLC STLMLC [id number] 2 Common 11:53:45 [id number] [facility] 2021-04-16 Outpatient Mace, Na STLMLC STLMLC [id number] 2 Common 11:53:24 [id number] [facility] 2021-04-16 Outpatient Mace, Na STLMLC STLMLC [id number] 2 Common 11:44:14 [id number] [facility] 2021-04-16 Outpatient Mace, Na STLMLC STLMLC [id number] 2 Common 11:21:23 [id number] [facility] 2021-04-16 Outpatient Mace, Na STLMLC STLMLC [id number] 2 Common 11:01:21 [id number] [facility] 2021-07-15 2021-07-15 ambulatory STLMLC STLMLC [id number] Common 00:00:00 00:00:00 [facility] 2020-09-04 2020-09-04 Outpatient Miller_S_AH VFP VF [id number] [facility] 05:40:00 05:40:00 [id number] Family Practic e 2020-08-13 2020-08-13 Outpatient Karen-Mbayo VFP VFP [id number] [facility] 04:09:00 04:09:00 _A_AH [id number] Family Practic e 2020-07-29 2020-07-29 Outpatient Karen-Mbayo VFP VFP [id number] [facility] 08:33:00 08:33:00 _A_AH [id number] Family Practic e 2020-07-25 2020-07-25 Meli VFP [place] - [id number] [facility] 00:00[facility]00 [facility] Kee menjivar 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 2020-06-18 2020-06-18 Outpatient STLMLC STLMLC [id number] Common 00:00:00 00:00:00 [facility] 2020-04-30 2020-04-30 Outpatient STLMLC STLMLC [id number] Common 00:00:00 00:00:00 [facility] 2020-04-25 2020-04-25 Outpatient STLMLC STLMLC [id number] Common 00:00:00 00:00:00 [facility] 2020-02-07 2020-02-07 Outpatient Karen-Mbayo VFP VFP [id number] [facility] 12:04:00 12:04:00 _A_AH [id number] Family Practic e 2020-02-07 2020-02-07 Outpatient Karen-Mbayo VFP VFP [id number] [facility] 12:04:00 12:04:00 _A_AH [id number] Family Practic e 2020-02-01 2020-02-01 Outpatient Karen-Mbayo VFP VFP [id number] [facility] 07:41:00 07:41:00 _A_AH [id number] Family Practic e 2020-01-23 2020-01-23 Meli VFP [place] - [id number] V illage 00:00:00 00:00:00 Karen-Mbay [facility] F[facility]t menjivar, TELECASTING TECHNICIAN: Medical - Practi c [address] [email or web address] [facility], [facility] [address] [place] [address] , Ph. 2020-01-01 2020-01-01 Outpatient STLMLC STLMLC [id number] Common 00:00:00 00:00:00 [facility] 2019-12-25 2019-12-25 Outpatient STLMLC STLMLC [id number] Common 00:00:00 00:00:00 [facility] 2019-12-01 2019-12-01 [facility] [id number] Common 10:00:00 10:00:[address] [facility] 2019-11-23 2019-11-23 Outpatient Karen-Mbayo VFP VFP [id number] [facility] 11:49:00 11:49:00 _A_AH [id number] Family Practic e 2019-11-17 2019-11-17 [facility] [id number] Common 15:50:00 15:50:[address] [facility] 2019-11-03 2019-11-03 Outpatient Karen-Mbayo VFP VFP [id number] [facility] 10:02:00 10:02:00 _A_AH [id number] Family Practic e 2019-10-24 2019-10-24 Outpatient Karen-Mbayo VFP VFP [id number] [facility] 09:35:00 09:35:00 _A_AH [id number] Family Practic e 2019-10-20 2019-10-20 Meli VFP [place] - [id number] [facility] ill[facility] 00:00:00 00:00:00 [facility] Fam burt menjivar TELECASTING TECHNICIAN: Medical - Practi c [address] [email or web address] [facility], [address] [place] [address] , Ph. 2019-05-10 2019-05-10 Outpatient Karen-Mbayo VFP VFP [id number] [facility] 07:28:00 07:28:00 _A_AH [id number] Family Practic e 2019-05-10 2019-05-10 Outpatient Karen-Mbayo VFP VFP [id number] [facility] 07:28:00 07:28:00 _A_AH [id number] Family Practic e 2019-04-17 2019-04-17 [facility] [id number] Common 13:20:00 13:20:[address] [facility] 2019-04-07 2019-04-07 [facility] [id number] Common 08:20:00 08:20:[address] [facility] 2019-01-26 2019-01-26 [facility] [id number] Common 13:40:00 13:40:[address] [facility] 2018-11-25 2018-11-25 [facility] [id number] Common 10:00:00 10:00:[address] [facility] 2018-10-25 2018-10-25 [facility] [id number] Common 13:20:00 13:20:[address] [facility] 2018-07-11 2018-07-11 [facility] [id number] Common 14:20:00 14:20:[address] [facility] 2018-04-08 2018-04-08 [facility] [id number] Common 10:00:00 10:00:[address] [facility] 2018-04-06 2018-04-06 [facility] [id number] Common 16:42:00 16:42:[address] [facility] 2018-01-31 2018-01-31 [facility] [id number] Common 14:45:00 14:45:[address] [facility] 2017-11-29 2017-11-29 [facility] [id number] Common 15:15:00 15:15:[address] [facility] Results This patient has no known results.
== END 2021-10-07 16:52 | disposition home or self-care (01) | DRG 310 ==
LOC: ER 11:14 → ERHOLD 12:37 → 2ND 16:21 → 4TH 16:22 → UNDODISIN 10-07 16:52 → 2ND 10-17 10:15 → 4TH 10-17 10:15 → 2ND 10-17 10:24
PROVIDERS: ADMIT Internal Medicine; ATTEND Internal Medicine
DX: R00.1 Bradycardia, unspecified (principal); I10 Essential (primary) hypertension; E11.9 Type 2 diabetes mellitus without complications; E78.5 Hyperlipidemia, unspecified; Z23 Encounter for immunization; Z20.822 Contact with and (suspected) exposure to COVID-19
CPT/HCPCS: 36415; 71045; 80053; 84443; 84484; 85025; 90471; 90732; 93005; 93306; 99283; J1650; J7030; U0003